=== PATIENT | female | born 1950 | race Asian ===

== ENCOUNTER 2023-10-14 11:09 | Emergency (ER) | payer OTHER ==
[~2023-10-14] VITALS: Ht 170.2 cm; Wt 45.4 kg
[2023-10-14 11:09] VITALS: BP 211/77; PULSE 72; RESP 18; TEMP 97.8; O2SAT 93
[2023-10-14] MEDS ORDERED: cefTRIAXone 1,000 MG in DEXT 5% MINI-BAG PLUS 50 ML IV ONE (11:25)
[2023-10-14] MEDS ORDERED: NACL 0.9% 1,500 ML IV SCH (11:25)
[2023-10-14] MEDS ORDERED: cefTRIAXone 1,000 MG VIAL ONE (11:40)
[2023-10-14 11:59] LABS: BASOPHILS % (AUTO) 0.6 % (0.0-2.0); EOSINOPHILS % (AUTO) 0.5 % (0.0-4.0); HEMATOCRIT 32.8 % (36-48); LYMPHOCYTES # (AUTO) 0.5 K/uL (2.5-16.5); LYMPHOCYTES % (AUTO) 7.5 % (20.5-51.1); MEAN CORPUSCULAR HEMOGLOBIN 33 pg (27-31); MEAN CORPUSCULAR HGB CONC 34 g/dL (33-37); MEAN CORPUSCULAR VOLUME 98.7 fL (80-94); MONOCYTES # (AUTO) 0.4 K/uL (0.8-1.0); MONOCYTES % (AUTO) 5.8 % (1.7-9.3); NEUTROPHILS # (AUTO) 5.8 K/uL (1.8-7.7); NEUTROPHILS % (AUTO) 85.6 % (42.2-75.2); PLATELET COUNT (AUTO) 166 K/uL (140-450); RED BLOOD CELL COUNT(AUTO) 3.32 MIL/uL (4.20-5.40); RED CELL DISTRIBUTION WIDTH 17.1 % (11.6-13.7); WHITE BLOOD COUNT (AUTO) 6.7 K/uL (4.8-10.8)
[2023-10-14 12:08] LABS: ANION GAP 14.7 (8-16); CARBON DIOXIDE 31.7 mmol/L (21-32); CHLORIDE 99 mmol/L (98-107); GLUCOSE 153 mg/dL (74-106); POTASSIUM 4.4 mmol/L (3.5-5.1); SODIUM SERUM 141 mmol/L (136-145); UREA NITROGEN, BLOOD 34 mg/dL (7-18)
[2023-10-14 12:15] VITALS: BP 211/77; PULSE 72; RESP 18; TEMP 97.8; O2SAT 95
[2023-10-14 12:16] LABS: LACTIC ACID 0.9 mmol/L (0.4-2.0)
[2023-10-14 12:20] LABS: CREATININE 4.9 mg/dL (0.6-1.3)
[2023-10-14 12:32] LABS: FLU A ANTIGEN negative (NEGATIVE); FLU B ANTIGEN negative (NEGATIVE)
== END 2023-10-14 15:26 | disposition home or self-care (01) ==
LOC: MED 11:09
DX: E11.649 Type 2 diabetes mellitus with hypoglycemia without coma (principal); Z20.822 Contact with and (suspected) exposure to COVID-19; I10 Essential (primary) hypertension; Z87.448 Personal history of other diseases of urinary system; Z98.890 Other specified postprocedural states; W06.XXXA Fall from bed, initial encounter; Y93.89 Activity, other specified; Y92.89 Other specified places as the place of occurrence of the external cause; Y99.8 Other external cause status
CPT/HCPCS: 36415; 71045; 80048; 82948; 83605; 83880; 84484; 85025; 87040; 87426; 87804; 93005; 96365; 99285; J0696; J7030

== ENCOUNTER 2023-10-16 10:17 | Emergency (ER) | payer OTHER ==
[~2023-10-16] VITALS: Ht 157.5 cm; Wt 45.4 kg
[2023-10-16 10:28] VITALS: BP 179/87; PULSE 73; RESP 14; TEMP 98.5; O2SAT 98
[2023-10-16 11:19] LABS: BASOPHILS % (AUTO) 0.4 % (0.0-2.0); EOSINOPHILS % (AUTO) 0.5 % (0.0-4.0); HEMATOCRIT 33.9 % (36-48); HEMOGLOBIN 11.3 g/dL (12.0-16.0); LYMPHOCYTES # (AUTO) 0.6 K/uL (2.5-16.5); LYMPHOCYTES % (AUTO) 10.7 % (20.5-51.1); MEAN CORPUSCULAR HEMOGLOBIN 33 pg (27-31); MEAN CORPUSCULAR HGB CONC 33 g/dL (33-37); MONOCYTES # (AUTO) 0.4 K/uL (0.8-1.0); MONOCYTES % (AUTO) 6.8 % (1.7-9.3); NEUTROPHILS # (AUTO) 4.4 K/uL (1.8-7.7); NEUTROPHILS % (AUTO) 81.6 % (42.2-75.2); PLATELET COUNT (AUTO) 148 K/uL (140-450); RED BLOOD CELL COUNT(AUTO) 3.38 MIL/uL (4.20-5.40); RED CELL DISTRIBUTION WIDTH 16.7 % (11.6-13.7); WHITE BLOOD COUNT (AUTO) 5.4 K/uL (4.8-10.8)
[2023-10-16 11:58] LABS: ANION GAP 14.4 (8-16); CHLORIDE 103 mmol/L (98-107); GLUCOSE 116 mg/dL (74-106); POTASSIUM 4.4 mmol/L (3.5-5.1); SODIUM SERUM 143 mmol/L (136-145); UREA NITROGEN, BLOOD 35 mg/dL (7-18)
[2023-10-16 12:07] LABS: CREATININE 5.3 mg/dL (0.6-1.3)
== END 2023-10-16 12:55 | disposition home or self-care (01) ==
LOC: MED 10:17
DX: E11.649 Type 2 diabetes mellitus with hypoglycemia without coma (principal); I12.9 Hypertensive chronic kidney disease with stage 1 through stage 4 chronic kidney disease, or unspecified chronic kidney disease; N18.9 Chronic kidney disease, unspecified; Z98.890 Other specified postprocedural states
CPT/HCPCS: 36415; 80048; 85025; 99283

== ENCOUNTER 2024-05-07 22:43 | Emergency (ER) | payer OTHER ==
[~2024-05-07] VITALS: Ht 162.6 cm; Wt 45.8 kg
[2024-05-07 22:51] VITALS: BP 161/81; PULSE 74; RESP 14; TEMP 97.3; O2SAT 99
[2024-05-08 00:46] VITALS: BP 161/81; PULSE 67; RESP 14; TEMP 97.3; O2SAT 98
== END 2024-05-08 00:46 | disposition home or self-care (01) ==
LOC: MED 22:43
DX: T82.838A Hemorrhage due to vascular prosthetic devices, implants and grafts, initial encounter (principal); I12.0 Hypertensive chronic kidney disease with stage 5 chronic kidney disease or end stage renal disease; E11.22 Type 2 diabetes mellitus with diabetic chronic kidney disease; N18.6 End stage renal disease; Z99.2 Dependence on renal dialysis; Y99.8 Other external cause status
CPT/HCPCS: 99283